=== PATIENT | female | born 2005 | race Caucasian/White ===

== ENCOUNTER 2023-11-30 14:34 | Outpatient (REF) | payer SELFPAY ==
[2023-11-30 22:13] LABS: HGB 12.7 g/dL (11.2-15.7); MCH 27.8 pg (27.0-33.0); MCHC 31.8 % (32.0-36.0); MCV 88 fL (80-95); MPV 10.6 fL (8.0-11.0); Platelet Count 234 10^3/uL (130-400); RBC 4.57 10^6/uL (3.93-5.22); RDW 13.4 % (11.7-14.6); RDW-SD 43.1 fL; WBC 4.72 10^3/uL (4.4-10.8)
[2023-11-30 22:40] LABS: Anion Gap 9.2 mmol/L (3-11); BUN 13 mg/dL (7-18); CO2 27.8 mmol/L (21.0-32.0); CREATININE 0.9 mg/dL (0.55-1.02); Calcium 9.8 mg/dL (8.5-10.1); Chloride 106 mmol/L (98-107); Estimated GFR 94.44 (mL/min/1.73m2); FREE T4 0.97 ng/dL (0.78-1.34); Glucose 83 mg/dL (74-106); Potassium 3.5 mmol/L (3.5-5.1); Sodium 143 mmol/L (136-145); TSH 1.96 uIU/Ml (0.52-4.13)
[2023-12-01 21:46] LABS: CRP, High Sensitivity <0.34 mg/L (See Note)
== END 2023-11-30 14:35 | disposition home or self-care (01) ==
LOC: NCHCN 14:34
PROVIDERS: Visit Provider Family Medicine
DX: R10.0 Acute abdomen (principal); E04.9 Nontoxic goiter, unspecified; R53.83 Other fatigue
CPT/HCPCS: 80048; 85027; 86141; 84439; 84443